=== PATIENT | female | born 1950 | race Caucasian/White ===

== ENCOUNTER 2017-08-15 11:46 | Outpatient (CLI) | payer MEDICARE, OTHER ==
--- NOTE | 2017-08-15 12:14 | RAD ---
LEFT ANKLE 3 VIEWS: Date: 08/15/17 HISTORY: Medial ankle pain, S93.402. COMPARISON: None. FINDINGS: No acute fracture. No malalignment. Mild mid foot degenerative disease. There are compression screws to what appears to be the first tarsometatarsal joint. Mild soft tissue edema of the ankle. IMPRESSION: 1. No acute fracture or malalignment. 2. Mild degenerative changes. POS: ASHTYN
== END 2017-08-15 11:47 | disposition home or self-care (01) ==
LOC: SCSRAD 11:46
PROVIDERS: ATTEND Internal Medicine
DX: M79.89 Other specified soft tissue disorders (principal); M25.572 Pain in left ankle and joints of left foot; M19.072 Primary osteoarthritis, left ankle and foot

== ENCOUNTER 2018-01-01 12:06 | Outpatient (CLI) | payer MEDICARE, OTHER | END 2018-01-01 12:07 | disposition home or self-care (01) | LOC: BICMAMMO 12:06 | PROVIDERS: ATTEND Internal Medicine | DX: Z12.31 Encounter for screening mammogram for malignant neoplasm of breast (principal); R92.1 Mammographic calcification found on diagnostic imaging of breast | CPT/HCPCS: 77063; 77067 ==

== ENCOUNTER 2018-07-03 11:54 | Outpatient (CLI) | payer MEDICARE, OTHER ==
--- NOTE | 2018-07-03 13:24 | RAD ---
LUMBAR SPINE 2 VIEWS: HISTORY: Low back pain. FINDINGS: There are 5 lumbar-type vertebrae. Pedicles are intact. S-shaped rotatory scoliotic curvature. Chris tebral body height and AP alignment are maintained. Osteophytosis throughout the lower facets. Neur al foramina or dislocation. IMPRESSION: Degenerative changes. No acute osseous abnormalities are demonstrated. POS: MARIEL
--- NOTE | 2018-07-03 13:26 | RAD ---
SACROILIAC JOINTS 3 VIEWS: HISTORY: Back pain. FINDINGS: Mild to moderate osteophytosis of each sacroiliac joint. Joint spaces are preserved. No aggressive osseous erosions. IMPRESSION: Mild degenerative changes. No acute osseous abnormalities were demonstrated. POS: MARIEL
== END 2018-07-03 11:55 | disposition home or self-care (01) ==
LOC: BICRAD 11:54
PROVIDERS: ATTEND Internal Medicine
DX: M54.9 Dorsalgia, unspecified (principal); M79.605 Pain in left leg; M47.896 Other spondylosis, lumbar region; M53.3 Sacrococcygeal disorders, not elsewhere classified
CPT/HCPCS: 72100; 72202

== ENCOUNTER 2018-07-14 09:07 | Outpatient (CLI) | payer MEDICARE, OTHER ==
--- NOTE | 2018-07-14 11:21 | MRI ---
LUMBAR SPINE MRI WITHOUT IV CONTRAST: HISTORY: A 67-year-old female with a history of low back pain and pain down left leg for three months. TECHNIQUE: Multiplanar, multisequence MRI examination of the lumbar spine is performed. FINDINGS: There are broad-based disk osteophytosis and disk bulging changes at T11-T12 and at T12-L1 with some ventral thecal sac compression at both levels but without definite cord compression. L1-L2: Slight thinning of the lateral recesses. L2-L3: Mild lateral recess narrowing and mild bilateral foraminal stenosis. L3-L4: There is mild lateral recess stenosis and bilateral foraminal stenosis. L4-L5: There is moderate bilateral recess stenosis and bilateral foraminal stenosis with mild centra l canal stenosis. L5-S1: There is significant facet arthrosis, including synovial cysts on the left side, with resulta nt moderate central canal and lateral recess stenosis, particularly the left dorsolateral recess. Mi ld bilateral foraminal stenosis. No significant abnormal marrow signal. IMPRESSION: Multilevel variable severity canal, lateral recess, and foraminal stenosis, as above. POS: MARIEL
== END 2018-07-14 09:08 | disposition home or self-care (01) ==
LOC: SCSMRI 09:07
PROVIDERS: ATTEND Internal Medicine
DX: M54.40 Lumbago with sciatica, unspecified side (principal); M62.40 Contracture of muscle, unspecified site; M54.5 Low back pain; M48.061 Spinal stenosis, lumbar region without neurogenic claudication; M48.07 Spinal stenosis, lumbosacral region; M99.83 Other biomechanical lesions of lumbar region
CPT/HCPCS: 72148

== ENCOUNTER 2019-01-06 11:09 | Outpatient (CLI) | payer MEDICARE, OTHER ==
--- NOTE | 2019-01-06 13:32 | MMO ---
Bilateral MAMMO Bilat Screen [facility]. CLINICAL HISTORY: Patient is 68 years old and is seen for screening. The patient has no family history of breast cancer. The patient has no personal history of cancer. The patient has a history of Breast reduction in November, and left Excisional Biopsy at age 24. VIEWS: The views performed were: bilateral craniocaudal with tomosynthesis and bilateral mediolateral oblique with tomosynthesis. FILMS COMPARED: The present examination has been compared to prior imaging studies performed at [facility] on 08/19/2007, 08/29/2008, 08/30/2009, 09/05/2010, 09/06/2011, 09/09/2012, 09/14/2013, 09/16/2014, 09/19/2015, 11/26/2016 and 01/01/2018, at [facility] [place] on [place]26/[place], and at [facility] on 02/27/2006. MAMMOGRAM FINDINGS: There are scattered fibroglandular densities. Benign calcifications are noted bilaterally. There are no suspicious masses, suspicious calcifications, or new areas of architectural distortion. IMPRESSION: THERE IS NO MAMMOGRAPHIC EVIDENCE OF MALIGNANCY. A ROUTINE FOLLOW-UP MAMMOGRAM IN 1 YEAR IS RECOMMENDED. THE RESULTS OF THIS EXAM WERE SENT TO THE PATIENT. ACR BI-RADS Category 2 - Benign finding MAMMOGRAPHY NOTE: 1. A negative mammogram report should not delay a biopsy if a dominant of clinically suspicious mass is present. 2. Approximately 10% to 15% of breast cancers are not detected by mammography. 3. Adenosis and dense breasts may obscure an underlying neoplasm.
== END 2019-01-06 11:10 | disposition home or self-care (01) ==
LOC: BICMAMMO 11:09
PROVIDERS: ATTEND Internal Medicine
DX: Z12.31 Encounter for screening mammogram for malignant neoplasm of breast (principal)
CPT/HCPCS: 77063; 77067

== ENCOUNTER 2019-01-28 09:45 | Outpatient (CLI) | payer MEDICARE, OTHER ==
--- NOTE | 2019-01-28 12:02 | MRI ---
MRI Lumbar Spine Noncontrast: HISTORY: Low back pain with pain radiating down left leg since one year ago. Lumbar radiculopathy. Synovial cy st. COMPARISON: 07/14/2018 FINDINGS: There is increased T2-weighted signal intensity lesion seen in the midportion medial right kidney sta ble in size and appearance compared to the prior study and likely related to a cyst. This was seen on prior CT examination of the abdomen and 2009 not significantly changed in size from that study. St able subcentimeter increased T2-weighted signal intensity foci are seen in the inferior pole of each kidney similar to prior study. Conus medullaris is normal in morphology and terminates at the L1 level. Paravertebral soft tissues have a normal MRI appearance. Disc osteophyte complexes are seen at the T10-11, T11-12, and T12-L1 levels similar to the prior exam resulting in narrowing of the ventral subarachnoid space at these levels. Neural foramina appear patent based on sagittal imaging. L1-2: Minimal disc bulge is present. There is no significant narrowing of the central spinal canal. N eural foramina are patent. L2-3: Mild disc osteophyte complex is again seen with slight effacement of the ventral aspect of thec al sac without significant central canal narrowing. Neural foramina are patent. L3-4: There is loss of intervertebral disc height with broad-based disc osteophyte complex similar to the prior exam. There is mild effacement of the ventral aspect of the thecal sac. Neural foramina are patent. L4-5: There is a mild broad-based disc osteophyte complex. There are facet degenerative changes prese nt. There is minimal encroachment on each neural foramen with mild narrowing of the central spinal canal. Findings are unchanged from prior exam. L5-S1: There is moderate to severe facet hypertrophic changes and ligamentous thickening. Increased f luid signal intensity is present within the facet joints at this level also present on prior exam. There is mild increased signal intensity seen adjacent to the facet joints seen on the fluid sensitiv e sequence likely attributable to the prominent facet degenerative changes. Previously described synovial cyst at the medial aspect of the left facet joint has mildly enlarged measuring 14 mm x 9 mm x 8 mm and previously measured 12 mm x 8 mm x 6 mm. This synovial cyst does result in mass effect on the left lateral aspect of the thecal sac and narrows the subarticular zone on the left. Neural fo ramina are patent. IMPRESSION: 1. Mild multilevel degenerative changes throughout the lumbar spine which have not progressed from pr ior study. However, there has been mild interval enlargement of a synovial cyst just medial to the L5-S1 facet joint resulting in mass effect on the left lateral aspect of the thecal sac and narrowing of the left subarticular zone in this region. Prominent facet degenerative changes are again present at the L5-S1 level.
== END 2019-01-28 09:46 | disposition home or self-care (01) ==
LOC: SCSMRI 09:45
PROVIDERS: ATTEND Nurse Practitioner Family
DX: M47.26 Other spondylosis with radiculopathy, lumbar region (principal); M71.30 Other bursal cyst, unspecified site; M47.817 Spondylosis without myelopathy or radiculopathy, lumbosacral region; G95.9 Disease of spinal cord, unspecified; M48.061 Spinal stenosis, lumbar region without neurogenic claudication
CPT/HCPCS: 72148

== ENCOUNTER 2019-02-22 05:17 | Outpatient (CLI) | payer MEDICARE, OTHER ==
[2019-02-22 13:36] LABS: INR-International Normal Ratio 0.9; PTT 25.8 SEC (22.9-36.1); Prothrombin Time 12.7 SEC (12.0-14.7)
== END 2019-02-22 05:18 | disposition home or self-care (01) ==
LOC: LABBT 05:17
PROVIDERS: ATTEND Neurological Surgery
DX: Z01.812 Encounter for preprocedural laboratory examination (principal); M54.16 Radiculopathy, lumbar region; M71.30 Other bursal cyst, unspecified site
CPT/HCPCS: 85610; 85730

== ENCOUNTER 2019-02-22 10:00 | Inpatient (IN) | payer MEDICARE, OTHER ==
[2019-02-22 10:46] VITALS: BMI 30.2
--- NOTE | 2019-02-24 16:47 | HP ---
HISTORY OF PRESENT ILLNESS: Ms. Lundy is back in our office after attempt to make left L5-S1 synovial cyst causing an S1 radiculopathy, which is worse than when we first saw her. She is interested in having this surgically removed. PAST MEDICAL HISTORY: Hypertension, high cholesterol, psychiatric treatment, anxiety, arthritis, allergies, depression, headaches, IBS, and sleep apnea. ALLERGIES: DEMEROL AND ERYTHROMYCIN. REVIEW OF SYSTEMS: 10-point review of systems has been completed and is negative other than stated in the above HPI. PAST SURGICAL HISTORY: Hysterectomy, C-sections, and gallbladder. FAMILY HISTORY: Father is , diagnosed with hypertension, heart disease, and stroke. Mother is , diagnosed with diabetes, hypertension, and heart disease. Children, alive. SOCIAL HISTORY: The patient is a nonsmoker. Denies alcohol or drug use. MEDICATIONS: Sertraline, alprazolam, spironolactone-HCTZ, aspirin 81 mg, trazodone, albuterol, amlodipine, atorvastatin, calcium, magnesium, cholecalciferol, ezetimibe, fenofibrate, valacyclovir. PHYSICAL EXAMINATION: CONSTITUTIONAL: Well appearing, well nourished, alert. NEUROLOGIC: Mental Status: Oriented to time, place, and person. Normal attention span and concentration. Speech, spontaneous and fluent. Comprehension intact. Content appropriate. Normal fund of knowledge. RESPIRATIONS: Normal work of breathing on room air. CRANIAL NERVES: Pupils are equal, round, and reactive to light. Extraocular movements are intact. Hearing is intact. Motor exam, muscle strength normal in lower extremities. Muscle tone and bulk, normal in lower extremities. 5/5 bilateral strength in IP, KE, KF, DF, PF, EHL. Left S1 radiculopathy. Negative single leg raise bilaterally. Rotation of bilateral hips normal. Tender to palpate right greater than left SI joint. Deep tendon reflex 2+ patellar, 2+ bilaterally Achilles. GAIT AND STATION: Sit to stand, slow. Normal gait. SENSORY: Light touch intact. IMAGING PROCEDURE: MRI, mild disk bulge without significant sign of nerve compression, L5-S1 left cyst compressing nerve root. ASSESSMENT AND PLAN: Lumbar radiculopathy due to synovial cyst. Dr. Saucedo has offered to surgically remove. The patient states that she understands the risks and is willing to proceed. Job ID: [id number]
[2019-02-25] MEDS ORDERED: Thrombin 5000 UNITS/5 ML VIAL ONE (06:17)
[2019-02-25] MEDS ORDERED: Bupivacaine HCl 0.5%/Epinephrine 1:200,000/PF 30 ml Vial ONE (06:17)
[2019-02-25] MEDS ORDERED: Sodium Chloride 0.9% 10 ML ONE (06:17)
[2019-02-25] MEDS ORDERED: Fentanyl 100 MCG/2 ML VIAL ONE ×2 (06:49→08:17)
[2019-02-25] MEDS ORDERED: hydrALAZINE 20 MG/ML VIAL ONE (09:03)
[2019-02-25] MEDS ORDERED: Promethazine HCl 25 MG/ML VIAL ONE ×2 (09:15→10:21)
[2019-02-25] MEDS ORDERED: HYDROcodone/Acetaminophen 5/325 mg Tablet ONE (10:51)
--- NOTE | 2019-02-25 11:38 | OP ---
DATE OF PROCEDURE: 02/25/2019 PHOTOGRAPH RETOUCHER: Lyndsay Ying PA-C. PREOPERATIVE INDICATION: Treat pain and prevent neurological deterioration. PREOPERATIVE DIAGNOSES: Left-sided lumbosacral synovial cyst with S1 nerve root compression and radiculopathy. POSTOPERATIVE DIAGNOSES: Left-sided lumbosacral synovial cyst with S1 nerve root compression and radiculopathy. PROCEDURES PERFORMED: Left-sided L5-S1 partial hemilaminectomy, medial facetectomy, synovial cystectomy, operating microscope. PREOPERATIVE MEDICATIONS: Ancef 2 g IV. DRAIN NUMBER: 0. DRAIN TYPE: None. DESCRIPTION OF PROCEDURE: The patient was brought to the operating room. General endotracheal anesthesia was induced. The patient was positioned prone on the operating table with her chest and hips supported by gel-filled chest rolls. A lateral fluoro radiograph was used to plan our incision. The lumbar skin was sterilely prepped and draped. We opened our incision with a 10 blade knife and controlled bleeding with bipolar and monopolar cautery. We used monopolar cautery to dissect through subcutaneous tissues to the thoracodorsal fascia. We incised the fascia left of the midline and reflected the paraspinal muscles off the spinous process and lamina of L5 and S1 on the left. A self-retaining retractor was placed and a lateral fluoro radiograph confirmed the level upon which we were operating. We then used bone rongeurs to fashion our partial hemilaminectomy and medial facetectomy. The operative microscope was brought into the field. Under microscopic magnification and using microsurgical techniques, we removed the yellow ligament on the left at L5-S1. There was some redundant synovium in the yellow ligament, which we from the facet joint. She has large dense ball of synovial cyst, it was carefully dissected off the dura. It was removed circumferentially and at the completion of the cystectomy, we could clearly identify the common thecal sac and the traversing S1 nerve root. We performed a small foraminotomy over the nerve root. We made sure the lateral recess had no more compression. We controlled bleeding with gentle bipolar cautery. We infused local anesthetic in the paraspinal muscles. We irrigated copiously with bacitracin irrigation. We closed the wound in anatomical layers and we applied a sterile dressing. This was a clean case, no contamination. Job ID: [id number]
== END 2019-02-25 15:35 | disposition home or self-care (01) | DRG 517 ==
LOC: SURG A 02-25 05:34
PROVIDERS: ADMIT Neurological Surgery; ATTEND Neurological Surgery
PROC: 01NB0ZZ Release Lumbar Nerve, Open Approach (ICD-10-PCS; principal; 2019-02-25)
DX: M71.38 Other bursal cyst, other site (principal); I10 Essential (primary) hypertension; E78.00 Pure hypercholesterolemia, unspecified; F41.9 Anxiety disorder, unspecified; M54.16 Radiculopathy, lumbar region; M19.90 Unspecified osteoarthritis, unspecified site; F32.9 Major depressive disorder, single episode, unspecified; G47.30 Sleep apnea, unspecified; Z90.710 Acquired absence of both cervix and uterus; Z90.49 Acquired absence of other specified parts of digestive tract; Z79.82 Long term (current) use of aspirin; Z79.899 Other long term (current) drug therapy
CPT/HCPCS: 76000; 85610; 85730; J0360; J0670; J0690; J2550; J3010; J3370; J3490

== ENCOUNTER 2019-10-06 06:51 | Outpatient (CLI) | payer MEDICARE, OTHER ==
--- NOTE | 2019-10-06 09:41 | ULT ---
ABDOMEN ULTRASOUND: HISTORY: Irritable bowel. Abdominal cramping. COMPARISON: None. TECHNIQUE: Real-time, lomax-scale and color evaluation of the abdomen was performed. FINDINGS: The visualized portion of the aorta, IVC and pancreas is unremarkable. Prior cholecystectomy. Diffuse increased hepatic echotexture. No hepatic mass. The common bile duct is not well seen. No intrahepatic biliary dilatation. Poor penetration of the liver due to the increased echotexture. Portal vein appears to be patent with antegrade flow. Limited evaluation of the common bile duct measures approximately 5 to 6 mm. The right kidney measures 10.6 x 5.3 x 5.3 cm without mass, hydronephrosis or abnormal calcifications . The left kidney measures 10.4 x 5 x 4.9 cm without mass, hydronephrosis or abnormal calcifications. The spleen measures 11.2 cm in length. IMPRESSION: 1. Prior cholecystectomy. 2. No evidence for biliary obstruction. 3. Diffuse increased hepatic echotexture, suggesting steatosis. POS: TPC
== END 2019-10-06 06:52 | disposition home or self-care (01) ==
LOC: BICULT 06:51
PROVIDERS: ATTEND Internal Medicine Gastroenterology
DX: K58.9 Irritable bowel syndrome, unspecified (principal); R10.9 Unspecified abdominal pain; K21.9 Gastro-esophageal reflux disease without esophagitis; Z86.010 Personal history of colon polyps; K76.89 Other specified diseases of liver; Z90.49 Acquired absence of other specified parts of digestive tract
CPT/HCPCS: 93975

== ENCOUNTER 2020-09-18 12:04 | Outpatient (CLI) | payer MEDICARE, OTHER ==
--- NOTE | 2020-09-18 13:07 | MMO ---
Bilateral MAMMO Bilat Screen [facility]. CLINICAL HISTORY: Patient is 69 years old and is seen for screening. The patient has no family history of breast cancer. The patient has no personal history of cancer. The patient has a history of Breast reduction in November, and left Excisional Biopsy at age 24. VIEWS: The views performed were: bilateral craniocaudal with tomosynthesis and bilateral mediolateral oblique with tomosynthesis. FILMS COMPARED: The present examination has been compared to prior imaging studies performed at [facility] on 09/19/2015, 11/26/2016, 01/01/2018 and 01/06/2019. This study has been interpreted with the assistance of computer-aided detection. MAMMOGRAM FINDINGS: There are scattered fibroglandular densities. There are stable post operative changes seen in both breasts. There are no suspicious masses, suspicious calcifications, or new areas of architectural distortion. IMPRESSION: THERE IS NO MAMMOGRAPHIC EVIDENCE OF MALIGNANCY. A ROUTINE FOLLOW-UP MAMMOGRAM IN 1 YEAR IS RECOMMENDED. THE RESULTS OF THIS EXAM WERE SENT TO THE PATIENT. ACR BI-RADS Category 2 - Benign finding MAMMOGRAPHY NOTE: 1. A negative mammogram report should not delay a biopsy if a dominant of clinically suspicious mass is present. 2. Approximately 10% to 15% of breast cancers are not detected by mammography. 3. Adenosis and dense breasts may obscure an underlying neoplasm. Reported by: CARMEN REES MD Electonically Signed: [id number]
== END 2020-09-18 12:05 | disposition home or self-care (01) ==
LOC: BICMAMMO 12:04
PROVIDERS: ATTEND Internal Medicine
DX: Z12.31 Encounter for screening mammogram for malignant neoplasm of breast (principal); Z91.89 Other specified personal risk factors, not elsewhere classified
CPT/HCPCS: 77063; 77067

== ENCOUNTER 2021-11-09 10:51 | Outpatient (CLI) | payer MEDICARE, OTHER | END 2021-11-09 10:52 | disposition home or self-care (01) | LOC: BICMAMMO 10:51 | PROVIDERS: ATTEND Internal Medicine | DX: Z12.31 Encounter for screening mammogram for malignant neoplasm of breast (principal); Z98.82 Breast implant status | CPT/HCPCS: 77063; 77067 ==

== ENCOUNTER 2023-01-09 13:20 | Outpatient (CLI) | payer MEDICARE, OTHER | END 2023-01-09 13:21 | disposition home or self-care (01) | LOC: BICMAMMO 13:20 | PROVIDERS: ATTEND Family Medicine | DX: Z12.31 Encounter for screening mammogram for malignant neoplasm of breast (principal) | CPT/HCPCS: 77063; 77067 ==

== ENCOUNTER 2023-10-08 14:22 | Outpatient (CLI) | payer MEDICARE, OTHER | END 2023-10-08 14:23 | disposition home or self-care (01) | LOC: BICMAMMO 14:22 | PROVIDERS: ATTEND Family Medicine | DX: Z13.820 Encounter for screening for osteoporosis (principal); M85.89 Other specified disorders of bone density and structure, multiple sites; Z78.0 Asymptomatic menopausal state | CPT/HCPCS: 77080 ==